=== PATIENT | female | born 1980 | race Caucasian/White ===

== ENCOUNTER 2017-12-01 08:42 | Outpatient (CLI) | payer OTHER ==
[2017-12-01 09:43] LABS: EOSINOPHILS # (AUTO) 0.2 X10'3 (0-0.9); EOSINOPHILS % (AUTO) 3.7 % (0-6); HEMATOCRIT 38.2 % (35.0-45.0); HEMOGLOBIN 13.1 g/dl (12.0-16.0); LYMPHOCYTES # (AUTO) 1.3 X10'3 (1.1-4.8); LYMPHOCYTES % (AUTO) 28.7 % (21-51); MEAN CORPUSCULAR HEMOGLOBIN 31.3 PG (27.0-31.0); MEAN CORPUSCULAR HGB CONC 34.2 % (33.0-36.5); MEAN CORPUSCULAR VOLUME 91.4 FL (78-98); MONOCYTES # (AUTO) 0.4 X10'3 (0-0.9); NEUTROPHILS # (AUTO) 2.6 X10'3 (1.8-7.7); NEUTROPHILS % (AUTO) 58.6 % (42-75); PLATELET COUNT 234 X10'3 (140-440); RED BLOOD COUNT 4.18 X10'6 (4.20-5.60); RED CELL DISTRIBUTION WIDTH 12.8 % (11.5-14.5); WHITE BLOOD COUNT 4.4 X10'3 (4.5-11.0)
[2017-12-01 09:44] LABS: CLARITY,URINE CLEAR (Clear); COLOR,URINE YELLOW (Yellow); GLUCOSE, URINE NEGATIVE (Neg); KETONES,URINE NEGATIVE (Neg); LEUKOCYTE ESTERASE ,URINE NEGATIVE (Neg); NITRITES, URINE NEGATIVE (Neg); OCCULT BLOOD,URINE NEGATIVE (Neg); PROTEIN,URINE NEGATIVE (Neg); UROBILINOGEN,URINE 0.2 E.U/dL (0.2-1.0)
[2017-12-01 09:49] LABS: UA COLLECTION TYPE NON-SPECIFIED
[2017-12-01 09:56] LABS: HEMOGLOBIN A1C 5.7 % (4.5-6.2)
[2017-12-01 10:11] LABS: ALANINE AMINOTRANSFERASE 21 U/L (12-78); ALBUMIN 3.7 G/DL (3.4-5.0); ALKALINE PHOSPHATASE 45 IU/L (46-116); ANION GAP 9 (8-16); ASPARTATE AMINO TRANSFERASE 17 U/L (10-37); BILIRUBIN,TOTAL 0.4 MG/DL (0.1-1.0); BLOOD UREA NITROGEN 17 MG/DL (7-18); C-REACTIVE PROTEIN 0.07 MG/DL (0.0-0.5); CHLORIDE 106 MMOL/L (99-107); CHOL/HDL RATIO 1.9 (0.00-4.99); CHOLESTEROL 167 MG/DL (0-200); CREATININE 0.68 MG/DL (0.40-0.90); FERRITIN 9 NG/ML (8-252); GLUCOSE 83 MG/DL (70-104); HDL CHOLESTEROL 88 MG/DL (35-60); LDL CHOLESTEROL 69 MG/DL (50-100); POTASSIUM 3.7 MMOL/L (3.5-5.1); SODIUM 143 MMOL/L (135-145); TOTAL CARBON DIOXIDE 27.7 MMOL/L (24-32); TOTAL PROTEIN 7.5 G/DL (6.4-8.2); TRIGLYCERIDES 39 MG/DL (20-135); eGFR > 90 ML/MIN
[2017-12-02 09:14] LABS: ESTRADIOL 116.5 pg/mL (.); PROGESTERONE 17.8 ng/mL (.)
== END 2017-12-01 23:59 ==
LOC: LAB 08:42
PROVIDERS: ATTEND Chiropractor
DX: E34.9 Endocrine disorder, unspecified (principal); D53.9 Nutritional anemia, unspecified; R53.82 Chronic fatigue, unspecified; R79.89 Other specified abnormal findings of blood chemistry
CPT/HCPCS: 36415; 80053; 80061; 81003; 82607; 82670; 82728; 83036; 84144; 84439; 84443; 84480; 85025; 86140; 86376